=== PATIENT | female | born 1950 | race Caucasian/White ===

== ENCOUNTER 2017-06-13 05:50 | Day surgery (SDC) | payer MEDICARE, BC ==
[2017-06-09 16:38] LABS: BASOPHILS # (AUTO) 0.1 X10'3 (0-0.2); BASOPHILS % (AUTO) 0.5 % (0-1); EOSINOPHILS # (AUTO) 0.4 X10'3 (0-0.9); EOSINOPHILS % (AUTO) 3.7 % (0-6); LYMPHOCYTES # (AUTO) 4.1 X10'3 (1.1-4.8); MEAN CORPUSCULAR HEMOGLOBIN 31.3 PG (27.0-31.0); MEAN CORPUSCULAR HGB CONC 35.4 % (33.0-36.5); MEAN CORPUSCULAR VOLUME 88.7 FL (78-98); MEAN PLATELET VOLUME 7.9 FL (7.4-10.4); MONOCYTES # (AUTO) 0.7 X10'3 (0-0.9); MONOCYTES % (AUTO) 6.4 % (2-12); NEUTROPHILS # (AUTO) 5.4 X10'3 (1.8-7.7); NEUTROPHILS % (AUTO) 50.4 % (42-75); PRE OP HEMATOCRIT 41.7 % (35.0-45.0); PRE OP HEMOGLOBIN 14.7 g/dL (12.0-16.0); PRE OP PLATELET COUNT 246 X10'3 (140-440); RED CELL DISTRIBUTION WIDTH 13.2 % (11.5-14.5)
[2017-06-09 16:43] LABS: ALBUMIN 4.2 G/DL (3.4-5.0); ALBUMIN/GLOBULIN RATIO 1.2 (1.1-1.5); ALKALINE PHOSPHATASE 64 IU/L (46-116); BLOOD UREA NITROGEN 18 MG/DL (7-18); CALCIUM 9.2 MG/DL (8.5-10.1); CHLORIDE 103 MMOL/L (99-107); PRE OP ALT 34 U/L (30-65); PRE OP ANION GAP 13 (8-16); PRE OP AST 20 U/L (10-37); PRE OP BILIRUB, TOTAL 0.3 MG/DL (0.0-1.0); PRE OP GLUCOSE 106 MG/DL (70-104); PRE OP SODIUM 143 MMOL/L (135-145); TOTAL CARBON DIOXIDE 26.6 MMOL/L (24-32); TOTAL PROTEIN 7.6 G/DL (6.4-8.2); eGFR 56 ML/MIN
[2017-06-09 16:47] LABS: PRE OP INR 0.9 INR; PRE OP POTASSIUM 2.9 MMOL/L (3.4-5.1); PRE OP PROTIME 9.7 SECONDS (9.0-12.0)
[~2017-06-13] VITALS: Ht 170.2 cm; Wt 84.8 kg
[2017-06-13] VITALS (19 sets, daily range): BP systolic 116–149; BP diastolic 59–84
[~2017-06-13 05:50] MED LIST: CEFOXITIN 1000 MG in NS IV.SOLN 100 ML IV ONE; FLUT16SP2 BOTHNARES; HYDR25TA4 PO; LEVO175T2 PO; famotidine 20mg tablet PO ONE; ringers solution, lacted 1,000 ML IV SCH
[2017-06-13] MEDS ORDERED: ceFAZolin 1000mg inj ONE (06:48)
[2017-06-13] MEDS ORDERED: clindamycin phosphate 40gm vag cream ONE (06:48)
[2017-06-13] MEDS ORDERED: vasoPRESSIN 20 units/ml inj. ONE ×2 (06:48→07:41)
[2017-06-13 07:46] LABS: ISTAT HGB 13.3 g/dl (12.0-16.0); ISTAT IONIZED CALCIUM 1.22 mmol/L (1.03-1.32); ISTAT K 3.5 mmol/L (3.5-5.1)
[2017-06-13] MEDS ORDERED: propofol inj 20 ML IV ONE (07:53)
[2017-06-13] MEDS ORDERED: fentaNYL/PF 50MCG/1 ML 2ML syringe ONE (07:53)
[2017-06-13] MEDS ORDERED: midazolam 2 mg/2 ml injection ONE (07:53)
[2017-06-13] MEDS ORDERED: sevoflurane 250ml liquid IH ONE (08:07)
[2017-06-13] MEDS ORDERED: ringers solution, lacted 1,000 ML IV SCH (08:58)
[2017-06-13] MEDS ORDERED: meperidine/PF 25mg/ml syringe IV PRN ×3 (09:00)
[2017-06-13] MEDS ORDERED: ondansetron/PF 4mg/2ml inj IV PRN ×2 (09:00→09:30)
[2017-06-13] MEDS ORDERED: morphine 2 MG/ML inj. syringe IV PRN ×2 (09:00)
[2017-06-13] MEDS ORDERED: proCHLORperazine 10 MG/2 ml inj IV PRN (09:00)
[2017-06-13] MEDS ORDERED: fluoroscein sod 10% (100mg/ml) 5ml vial ONE (09:06)
[2017-06-13] MEDS: ringers solution, lacted 1,000 ML IV SCH ×2 (09:29→19:29)
[2017-06-13] MEDS ORDERED: diphenhydrAMINE 50 mg/ml inj IV PRN (09:30)
[2017-06-13] MEDS ORDERED: temazepam 15mg capsule PO PRN (09:30)
[2017-06-13] MEDS ORDERED: CADD PCA waste documentation MC PRN (09:30)
[2017-06-13] MEDS ORDERED: ketorolac tromethamine 15mg/ml inj. IV PRN (09:30)
[2017-06-13] MEDS ORDERED: naloxone 0.4 mg/ml inj IV PRN (09:30)
[2017-06-13] MEDS ORDERED: normal saline 500ml IV soln 500 ML IV PRN (09:30)
[2017-06-13] MEDS ORDERED: HYDROcodone/acetaminophen 5mg/325mg tablet PO PRN ×2 (09:30)
[2017-06-13] MEDS: HYDROmorphone/NS 1 mg/ml CADD 50 ML IV SCH ×8 (11:00→23:00)
[2017-06-14] VITALS: BP 118/62
[2017-06-14] MEDS: HYDROmorphone/NS 1 mg/ml CADD 50 ML IV SCH ×5 (01:00→09:00)
[2017-06-14] MEDS: ringers solution, lacted 1,000 ML IV SCH (02:36)
[2017-06-14 05:55] LABS: BASOPHILS % (AUTO) 0.3 % (0-1); EOSINOPHILS # (AUTO) 0.2 X10'3 (0-0.9); EOSINOPHILS % (AUTO) 2.3 % (0-6); HEMATOCRIT 33.6 % (35.0-45.0); HEMOGLOBIN 11.5 g/dl (12.0-16.0); LYMPHOCYTES # (AUTO) 2.2 X10'3 (1.1-4.8); LYMPHOCYTES % (AUTO) 29.3 % (21-51); MEAN CORPUSCULAR HEMOGLOBIN 30.8 PG (27.0-31.0); MEAN CORPUSCULAR HGB CONC 34.3 % (33.0-36.5); MEAN CORPUSCULAR VOLUME 90.1 FL (78-98); MONOCYTES # (AUTO) 0.5 X10'3 (0-0.9); MONOCYTES % (AUTO) 5.9 % (2-12); NEUTROPHILS # (AUTO) 4.8 X10'3 (1.8-7.7); NEUTROPHILS % (AUTO) 62.2 % (42-75); PLATELET COUNT 162 X10'3 (140-440); RED BLOOD COUNT 3.74 X10'6 (4.20-5.60); RED CELL DISTRIBUTION WIDTH 13.5 % (11.5-14.5); WHITE BLOOD COUNT 7.7 X10'3 (4.5-11.0)
[2017-06-14] MEDS ORDERED: levoTHYROXINE 175mcg tablet PO SCH (06:30)
[2017-06-14] MEDS ORDERED: fluticasone nasal spray 16GM bottle NS SCH (08:00)
[2017-06-14] MEDS ORDERED: HYDROchlorothiazide 25mg tablet PO SCH (08:00)
== END 2017-06-14 17:53 | disposition home or self-care (01) ==
LOC: PAS 05:50 → SUR 3N 09:29 → PAS 06-14 17:53
PROVIDERS: ATTEND Specialist
DX: N76.1 Subacute and chronic vaginitis (principal); N30.20 Other chronic cystitis without hematuria; N81.11 Cystocele, midline; N32.89 Other specified disorders of bladder; N39.3 Stress incontinence (female) (male); E03.9 Hypothyroidism, unspecified; Z90.710 Acquired absence of both cervix and uterus; Z98.51 Tubal ligation status; Z90.89 Acquired absence of other organs; Z98.890 Other specified postprocedural states; Z87.891 Personal history of nicotine dependence; Z79.899 Other long term (current) drug therapy; Z88.1 Allergy status to other antibiotic agents; Z88.8 Allergy status to other drugs, medicaments and biological substances
CPT/HCPCS: 36415; 52204; 57240; 57288; 80047; 80053; 85025; 85610; 85730; 86885; 86900; 86901; A4315; A4355; A6255; C1771; J0690; J0694; J1170; J2250; J2270; J2704; J3010; J3490; J7030; J7120; 88302; 88305; A6250; A7000